=== PATIENT | male | born 1955 | race Caucasian/White ===

== ENCOUNTER 2023-03-31 22:21 | Observation (INO) | payer MEDICARE, SELFPAY ==
[2023-03-31] VITALS (7 sets, daily range): BP systolic 132; BP diastolic 67; PULSE 56–59; RESP 15–22; TEMP 36.5; O2SAT 88–99; BMI 40.7
--- NOTE | 2023-03-31 22:49 | ED_ITS ---
HPI - General Adult General Chief complaint: Chest Pain Stated complaint: Abdominal, Back and Shoulder Pain Time Seen by Provider: 03/31/23 22:44 History of Present Illness HPI narrative: 68-year-old male presents to the emergency department for pain across his lower chest and his back. It started about three hours ago. No fever or injury. He's always short of breath always has a cough, he has chronic obstructive pulmonary disease. No vomiting diarrhea or constipation. Related Data Home Medications Medication Instructions Recorded Confirmed No Known Home Medications 03/31/23 03/31/23 Allergies Allergy/AdvReac Type Severity Reaction Status Date / Time No Known Drug Allergies Allergy Verified 03/31/23 22:52 Review of Systems ROS Narrative A ten point review of systems is negative except as noted above. PFSH PFSH Social History Smoking status: Former smoker Exam Narrative Exam Narrative: Nurses note and vital signs reviewed and patient is not hypoxic. General: The patient appears well and in no apparent distress. Patient is resting comfortably on cart. Skin: Warm, dry, no pallor noted. There is no rash noted. Head: Normocephalic, atraumatic Eye: Normal conjunctiva, no drainage Ears, Nose, Mouth, and Throat: oral mucosa is moist. Nares patent. Cardiovascular: Regular Rate and Rhythm Respiratory: Patient is in no distress, no accessory muscle use, lungs are clear to auscultation, no wheezing, rales or rhonchi Back: non-tender GI: often nontender Musculoskeletal: The patient has no evidence of calf tenderness, no pitting edema, symmetrical pulses noted bilaterally Neurological: A&O, normal speech Psychiatric: Cooperative Constitutional Vital Signs, click to edit/add: Last Vital Signs Temp 97.7 F 03/31/23 22:44 Pulse 86 04/01/23 01:55 Resp 18 04/01/23 01:55 BP 141/84 04/01/23 03:15 Pulse Ox 97 04/01/23 01:55 O2 Del Method Nasal Cannula 04/01/23 01:55 O2 Flow Rate 3 04/01/23 01:55 Course Vital Signs Vital signs: Vital Signs Temperature 97.7 F 03/31/23 22:44 Pulse Rate 56 L 03/31/23 22:44 Respiratory Rate 22 03/31/23 22:44 Blood Pressure 132/67 03/31/23 22:44 Pulse Oximetry 88 L 03/31/23 22:44 Oxygen Delivery Method Room Air 03/31/23 22:44 Temperature 97.7 F 03/31/23 22:44 Pulse Rate 86 04/01/23 01:55 Respiratory Rate 18 04/01/23 01:55 Blood Pressure 141/84 04/01/23 03:15 Pulse Oximetry 97 04/01/23 01:55 Oxygen Delivery Method Nasal Cannula 04/01/23 01:55 Oxygen Delivery Flow Rate 3 04/01/23 01:55 Medical Decision Making MDM Narrative Medical decision making narrative: choledocholithiasis is suggested on the CAT scan by the radiologist with partially calcified stone at the ampulla. Bilirubin is 2.7 and he has a slight increase in his AST and ALT. no evidence of acute cholecystitis. I've spoken to the admitting service at [facility] and he is accepted there. We're awaiting bed assignment. Findings are discussed with the patient and his . He will most likely require ERCP. Differential Diagnosis Differential Diagnosis: acute cholecystitis, choledocholithiasis, hepatitis, small bowel obstructio Lab Data Lab results reviewed: Yes I reviewed the patient's lab results Labs: Lab Results 03/31/23 04/01/23 Range/Units 22:50 00:18 WBC 6.0 (4.0-11.0) 10^3/uL RBC 4.96 (4.70-6.10) 10^6/uL Hgb 13.6 L (14.0-18.0) g/dL Hct 45.3 (42.0-54.0) % MCV 91.3 (80.0-94.0) fL MCH 27.4 (25.9-34.0) pg MCHC 30.0 (29.9-35.2) g/dL RDW 14.0 (11.0-15.0) % Plt Count 219 (150-450) 10^3/uL MPV 10.9 (9.5-13.5) fL Neut % (Auto) 69.6 (43.0-75.0) % Lymph % (Auto) 16.1 L (20.5-60.0) % [place] % (Auto) 10.3 (1.7-12.0) % Eos % (Auto) 2.8 (0.9-7.0) % Baso % (Auto) 0.5 (0.2-2.0) % Neut # (Auto) 4.2 (1.4-6.5) 10^3/uL Lymph # (Auto) 1.0 L (1.2-3.8) 10^3/uL [place] # (Auto) 0.6 (0.3-0.8) 10^3/uL Eos # (Auto) 0.2 (0.0-0.7) 10^3/uL Baso # (Auto) 0.0 (0.0-0.1) 10^3/uL Abs Immat Gran (auto) 0.04 H (0.00-0.03) 10^3/uL Imm/Tot Granulo (auto) 0.7 H (0.0-0.5) % Sodium 144 (136-145) mmol/L Potassium 3.8 (3.5-5.1) mmol/L Chloride 106 (98-107) mmol/L Carbon Dioxide 28.7 (21.0-32.0) mmol/L Anion Gap 13.1 BUN 19.0 H (7.0-18.0) mg/dL Creatinine 1.02 (0.70-1.30) mg/dL Est GFR ( Amer) >60 (>=60) Est GFR (Non-Af Amer) >60 (>=60) BUN/Creatinine Ratio 18.6 Glucose 131 H (74-106) mg/dL Calcium 8.6 (8.5-10.1) mg/dL Total Bilirubin 2.7 H (0.2-1.0) mg/dL Direct Bilirubin 2.0 H* (0.0-0.2) mg/dL AST 121 H (15-37) U/L ALT 114 H (16-63) U/L Alkaline Phosphatase 525 H (46-116) U/L Troponin I High Sens 7.1 6.2 (4.0-76.1) pg/mL Total Protein 7.4 (6.4-8.2) g/dL Albumin 3.4 (3.4-5.0) g/dL Globulin 4.0 g/dL Albumin/Globulin Ratio 0.9 Amylase 65 (25-115) U/L Lipase 83.0 H (16.0-77.0) U/L Imaging Data CT scan - abdomen: Radiologist's impression: Procedure: CT abdomen pelvis wo con EXAM: CT abdomen pelvis wo con HISTORY: upper abdominal pain, elevated bilirubin COMPARISON: CT abdomen pelvis, 06/11/2021. TECHNIQUE: Nonenhanced CT imaging the abdomen and pelvis was performed with sagittal and coronal reconstructions. Dose reduction techniques were achieved by using automated exposure control and/or adjustment of mA and/or kV according to patient size and/or use of iterative reconstruction technique. FINDINGS: CT ABDOMEN: Nonspecific lower lobe bronchial wall thickening is noted. Coronary arterial calcifications are present. Cardiac size is normal. There is no pericardial effusion. There is intrahepatic and extrahepatic biliary ductal dilatation with a nonspecific 9 mm hyperdensity near the ampulla of Vater on image 58 of series 3 suspicious for choledocholithiasis. The gallbladder is distended with multiple layering stones. No wall thickening or pericholecystic fluid is seen. The exam is limited by the lack of IV contrast. Solid organ lesions or acute abnormalities could be missed. Allowing for this, the liver, pancreas, spleen, and adrenal glands are unremarkable. 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 There is a 1.5 cm lobular stone in the left renal pelvis on image 50 of series 3 with 2 additional smaller left renal calculi. There is some left renal cortical scarring with a cortical cyst off the lateral lower pole of the left kidney measuring 3.4 cm on image 66. Prior gastric bypass is noted. The stomach and small bowel are otherwise unremarkable. There are mild aortic calcifications without aneurysm. There are 2 small supraumbilical fat-containing ventral hernias with a fat-containing umbilical hernia. CT PELVIS: The appendix and pelvic small bowel loops are unremarkable. Colonic diverticulosis is noted. There is nonspecific wall thickening in the decompressed urinary bladder. The prostate is mildly enlarged. There are fat-containing inguinal hernias, right larger than left. No inflammatory fat stranding, free fluid, loculated fluid or free air is seen in the abdomen or pelvis. There is severe osteoarthritis in both hips. There is a mild broad lumbar dextroscoliosis with multilevel spinal degenerative change. No acute osseous abnormality or suspicious bony lesion is seen. IMPRESSION: 1. Nonspecific diffuse biliary ductal dilatation may be due to choledocholithiasis, with a suggested partially calcified 9 mm distal common duct stone near the ampulla. ERCP could further evaluate. 2. Cholelithiasis with diffuse gallbladder distention likely related to biliary obstruction. 3. Bilateral lower lobe bronchial wall thickening may reflect bronchitis or reactive airways disease. 4. Coronary arterial calcifications. 5. Nonobstructing 1.5 cm stone in the left renal pelvis with several additional smaller left renal calculi. 6. Gastric bypass. 7. Nonspecific wall thickening in the decompressed bladder may reflect bladder decompression or cystitis. 8. Mild prostatomegaly. Electronically authenticated by: JASMIN WU Date: 04/01/2023 02:34 Discharge Plan Discharge Chief Complaint: Chest Pain Clinical Impression: Choledocholithiasis Patient Disposition: [facility] Time of Disposition Decision: 03:31 Discharge Location: [facility] Condition: Good Mode of Transportation: EMS
--- NOTE | 2023-03-31 22:49 | ECG_ITS ---
The [facility] Test Date: 2023-03-31 Pat Name: JASMIN NASSAR Department: Room: - Gender: Male [employer] Operator: : 1955 Requested By: 1030 Order Number: [id number] Reading MD: MADHAVI TRIPLETT Measurements Intervals [place] Rate: 55 P: 76 CT: 182 QRS: 251 QRSD: 106 T: 84 QT: 442 QTc: 430 Interpretive Statements 1100 Sinus rhythm 2440 Incomplete right bundle branch block 5120 Possible right ventricular hypertrophy 7300 Indeterminate axis 8003 Consistent with pulmonary disease 9150 abnormal ECG No previous ECG available for comparison Electronically Signed On 04-01-2023 7:06:53 EST by MADHAVI TRIPLETT
--- NOTE | 2023-03-31 22:49 | XR_ITS ---
The [address] [address] Patient Name: JASMIN NASSAR MRN: [id number] date: 1955 Sex: M Assigned Patient Location: ER Current Patient Location: ER Accession/Order Number: [id number] Exam Date: 03/31/2023 23:00 Report Date: 03/31/2023 23:25 At the request of: WM SNELL Procedure: XR chest 1V CXR HISTORY: Shortness of breath COMPARISON: None. TECHNIQUE: 1 view chest submitted for review. FINDINGS: Calcified granulomas demonstrated The lungs are adequately expanded without evidence of acute infiltrate or effusion. The cardiac silhouette measures within normal. Pulmonary vascularity is unremarkable. Osseous structures do not demonstrate any acute abnormality. XR/XR chest 1V IMPRESSION: No plain film evidence for acute cardiopulmonary disease. Electronically authenticated by: IGNACIO NICOLAS Date: 03/31/2023 23:25
[2023-03-31 23:15] LABS: Basophils Percent Auto 0.5 % (0.2-2.0); Eosinophils Absolute Auto 0.2 10^3/uL (0.0-0.7); Eosinophils Percent Auto 2.8 % (0.9-7.0); Hematocrit 45.3 % (42.0-54.0); Hemoglobin 13.6 g/dL (14.0-18.0); Immature Granulocytes Abs Auto 0.04 10^3/uL (0.00-0.03); Immature Granulocytes Pct Auto 0.7 % (0.0-0.5); Lymphocytes Percent Auto 16.1 % (20.5-60.0); Mean Corpuscular Hemoglobin 27.4 pg (25.9-34.0); Mean Corpuscular Volume 91.3 fL (80.0-94.0); Mean Platelet Volume 10.9 fL (9.5-13.5); Monocytes Absolute Auto 0.6 10^3/uL (0.3-0.8); Monocytes Percent Auto 10.3 % (1.7-12.0); Neutrophils Absolute Auto 4.2 10^3/uL (1.4-6.5); Neutrophils Percent Auto 69.6 % (43.0-75.0); Platelet Count 219 10^3/uL (150-450); Red Blood Count 4.96 10^6/uL (4.70-6.10)
[2023-03-31 23:32] LABS: Alanine Aminotransferase 114 U/L (16-63); Albumin Globulin Ratio 0.9; Albumin Level 3.4 g/dL (3.4-5.0); Alkaline Phosphatase 525 U/L (46-116); Anion Gap 13.1; Aspartate Amino Transferase 121 U/L (15-37); BUN Creatinine Ratio 18.6; Bilirubin Total 2.7 mg/dL (0.2-1.0); Calcium 8.6 mg/dL (8.5-10.1); Carbon Dioxide 28.7 mmol/L (21.0-32.0); Chloride 106 mmol/L (98-107); Estimated GFR (African America >60 (>=60); Estimated GFR (Non-African Ame >60 (>=60); Glucose 131 mg/dL (74-106); Potassium 3.8 mmol/L (3.5-5.1); Sodium 144 mmol/L (136-145); Total Protein 7.4 g/dL (6.4-8.2)
[2023-03-31 23:35] LABS: Amylase 65 U/L (25-115); Troponin I High Sensitivity 7.1 pg/mL (4.0-76.1)
[2023-04-01] VITALS (107 sets, daily range): BP systolic 98–153; BP diastolic 49–104; PULSE 52–110; RESP 13–28; TEMP 36.7–36.9; O2SAT 85–100; BMI 39.1
--- NOTE | 2023-04-01 00:03 | CT_ITS ---
The [address] [address] Patient Name: JASMIN NASSAR MRN: [id number] date: 1955 Sex: M Assigned Patient Location: ER Current Patient Location: ER Accession/Order Number: [id number] Exam Date: 04/01/2023 00:40 Report Date: 04/01/2023 02:34 At the request of: WM SNELL Procedure: CT abdomen pelvis wo con EXAM: CT abdomen pelvis wo con HISTORY: upper abdominal pain, elevated bilirubin COMPARISON: CT abdomen pelvis, 06/11/2021. TECHNIQUE: Nonenhanced CT imaging the abdomen and pelvis was performed with sagittal and coronal reconstructions. Dose reduction techniques were achieved by using automated exposure control and/or adjustment of mA and/or kV according to patient size and/or use of iterative reconstruction technique. FINDINGS: CT ABDOMEN: Nonspecific lower lobe bronchial wall thickening is noted. Coronary arterial calcifications are present. Cardiac size is normal. There is no pericardial effusion. There is intrahepatic and extrahepatic biliary ductal dilatation with a nonspecific 9 mm hyperdensity near the ampulla of Vater on image 58 of series 3 suspicious for choledocholithiasis. The gallbladder is distended with multiple layering stones. No wall thickening or pericholecystic fluid is seen. The exam is limited by the lack of IV contrast. Solid organ lesions or acute abnormalities could be missed. Allowing for this, the liver, pancreas, spleen, and adrenal glands are unremarkable. 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 There is a 1.5 cm lobular stone in the left renal pelvis on image 50 of series 3 with 2 additional smaller left renal calculi. There is some left renal cortical scarring with a cortical cyst off the lateral lower pole of the left kidney measuring 3.4 cm on image 66. Prior gastric bypass is noted. The stomach and small bowel are otherwise unremarkable. There are mild aortic calcifications without aneurysm. There are 2 small supraumbilical fat-containing ventral hernias with a fat-containing umbilical hernia. CT PELVIS: The appendix and pelvic small bowel loops are unremarkable. Colonic diverticulosis is noted. There is nonspecific wall thickening in the decompressed urinary bladder. The prostate is mildly enlarged. There are fat-containing inguinal hernias, right larger than left. No inflammatory fat stranding, free fluid, loculated fluid or free air is seen in the abdomen or pelvis. There is severe osteoarthritis in both hips. There is a mild broad lumbar dextroscoliosis with multilevel spinal degenerative change. No acute osseous abnormality or suspicious bony lesion is seen. CT/CT abdomen pelvis wo con IMPRESSION: 1. Nonspecific diffuse biliary ductal dilatation may be due to choledocholithiasis, with a suggested partially calcified 9 mm distal common duct stone near the ampulla. ERCP could further evaluate. 2. Cholelithiasis with diffuse gallbladder distention likely related to biliary obstruction. 3. Bilateral lower lobe bronchial wall thickening may reflect bronchitis or reactive airways disease. 4. Coronary arterial calcifications. 5. Nonobstructing 1.5 cm stone in the left renal pelvis with several additional smaller left renal calculi. 6. Gastric bypass. 7. Nonspecific wall thickening in the decompressed bladder may reflect bladder decompression or cystitis. 8. Mild prostatomegaly. Electronically authenticated by: JASMIN WU Date: 04/01/2023 02:34
[2023-04-01] MEDS: ONDANSETRON PF 4 MG/2 ML VIAL IV ×2 (00:30→01:40)
[2023-04-01 00:47] LABS: Troponin I High Sensitivity 6.2 pg/mL (4.0-76.1)
[2023-04-01] MEDS: ALBUTEROL SULFATE 2.5 MG/3 ML VIAL NEB IH (01:53)
[2023-04-01 03:42] LABS: Influenza Virus A Antigen Negative; Influenza Virus B Antigen Negative; Internal Control Within Normal Limits; SARS-CoV-2 Ag NEGATIVE (NEGATIVE)
--- NOTE | 2023-04-01 03:47 | ECG_ITS ---
The [facility] Test Date: 2023-04-01 Pat Name: JASMIN NASSAR Department: Room: - Gender: Male Senior Media Buyer: : 1955 Requested By: 1030 Order Number: [id number] Reading MD: MADHAVI TRIPLETT Measurements Intervals Romeo Rate: 100 P: 67 SC: 184 QRS: 244 QRSD: 102 T: 73 QT: 350 QTc: 407 Interpretive Statements 1120 Sinus tachycardia 2440 Incomplete right bundle branch block 5120 Possible right ventricular hypertrophy 7300 Indeterminate axis 8003 Consistent with pulmonary disease 9150 abnormal ECG Compared to ECG 03/31/2023 22:50:41 Sinus rhythm no longer present Electronically Signed On 04-01-2023 7:08:04 EST by MADHAVI TRIPLETT
[2023-04-01] MEDS: AMPICILLIN SODIUM/SULBACTAM NA 3 GM in 0.9 % SODIUM CHLORIDE 100 ML IV (07:16)
[2023-04-01] MEDS: HYDROMORPHONE HCL 1 MG/ML CARTRIDGE IV (08:00)
[2023-04-01 14:26] LABS: SARS-CoV-2 NAA NOT DETECTED (NOT DETECTE)
[2023-04-01 17:15] LABS: Basophils Percent Auto 0.1 % (0.2-2.0); Hematocrit 45.6 % (42.0-54.0); Hemoglobin 13.6 g/dL (14.0-18.0); Immature Granulocytes Abs Auto 0.04 10^3/uL (0.00-0.03); Immature Granulocytes Pct Auto 0.4 % (0.0-0.5); Lymphocytes Absolute Auto 0.4 10^3/uL (1.2-3.8); Lymphocytes Percent Auto 3.8 % (20.5-60.0); Mean Corpuscular HGB Conc 29.8 g/dL (29.9-35.2); Mean Corpuscular Hemoglobin 27.5 pg (25.9-34.0); Mean Corpuscular Volume 92.1 fL (80.0-94.0); Monocytes Percent Auto 10.5 % (1.7-12.0); Neutrophils Absolute Auto 8.3 10^3/uL (1.4-6.5); Neutrophils Percent Auto 85.2 % (43.0-75.0); Platelet Count 182 10^3/uL (150-450); Red Blood Count 4.95 10^6/uL (4.70-6.10); Red Cell Distribution Width 14.4 % (11.0-15.0); White Blood Count 9.7 10^3/uL (4.0-11.0)
[2023-04-01 17:28] LABS: Alanine Aminotransferase 183 U/L (16-63); Albumin Globulin Ratio 0.8; Albumin Level 3.1 g/dL (3.4-5.0); Alkaline Phosphatase 514 U/L (46-116); Anion Gap 9.7; Aspartate Amino Transferase 165 U/L (15-37); BUN Creatinine Ratio 19.2; Bilirubin Total 6.4 mg/dL (0.2-1.0); Calcium 8.7 mg/dL (8.5-10.1); Carbon Dioxide 31.8 mmol/L (21.0-32.0); Chloride 107 mmol/L (98-107); Estimated GFR (African America >60 (>=60); Estimated GFR (Non-African Ame >60 (>=60); Globulin 3.9 g/dL; Glucose 107 mg/dL (74-106); Potassium 4.5 mmol/L (3.5-5.1); Sodium 144 mmol/L (136-145)
[2023-04-01] MEDS: LACTATED RINGER'S SOLUTION 1,000 ML 100 ML IV (21:02)
[2023-04-01] MEDS: CEFTRIAXONE 1,000 MG in 0.9 % SODIUM CHLORIDE 50 ML 100 MG IV (21:03)
[2023-04-01] MEDS: METRONIDAZOLE/SODIUM CHLORIDE 500 MG/100 ML PREMIX 100 MG IV (21:03)
[2023-04-01] MEDS: ENOXAPARIN SODIUM 40 MG/0.4 ML SYRINGE SUBQ (21:05)
[2023-04-01] MEDS: OXYCODONE HCL 5 MG TABLET PO (21:52)
[2023-04-02] VITALS (9 sets, daily range): BP systolic 97–117; BP diastolic 61–71; PULSE 55–98; RESP 16–24; TEMP 36.7–37.1; O2SAT 87–99
[2023-04-02] MEDS: METRONIDAZOLE/SODIUM CHLORIDE 500 MG/100 ML PREMIX 100 MG IV ×3 (04:29→20:34)
[2023-04-02 04:50] LABS: Basophils Percent Auto 0.1 % (0.2-2.0); Hemoglobin 12.9 g/dL (14.0-18.0); Immature Granulocytes Abs Auto 0.02 10^3/uL (0.00-0.03); Immature Granulocytes Pct Auto 0.3 % (0.0-0.5); Lymphocytes Absolute Auto 0.4 10^3/uL (1.2-3.8); Mean Corpuscular Hemoglobin 27.5 pg (25.9-34.0); Mean Corpuscular Volume 91.7 fL (80.0-94.0); Mean Platelet Volume 10.8 fL (9.5-13.5); Monocytes Percent Auto 12.5 % (1.7-12.0); Neutrophils Absolute Auto 6.3 10^3/uL (1.4-6.5); Neutrophils Percent Auto 82.1 % (43.0-75.0); Platelet Count 181 10^3/uL (150-450); Red Blood Count 4.69 10^6/uL (4.70-6.10); Red Cell Distribution Width 14.5 % (11.0-15.0); White Blood Count 7.6 10^3/uL (4.0-11.0)
[2023-04-02 05:10] LABS: Alanine Aminotransferase 149 U/L (16-63); Albumin Globulin Ratio 0.7; Albumin Level 2.7 g/dL (3.4-5.0); Alkaline Phosphatase 445 U/L (46-116); Aspartate Amino Transferase 114 U/L (15-37); BUN Creatinine Ratio 20.2; Bilirubin Total 7.2 mg/dL (0.2-1.0); Calcium 8.3 mg/dL (8.5-10.1); Carbon Dioxide 28.2 mmol/L (21.0-32.0); Chloride 105 mmol/L (98-107); Estimated GFR (African America >60 (>=60); Estimated GFR (Non-African Ame >60 (>=60); Globulin 3.8 g/dL; Glucose 112 mg/dL (74-106); Potassium 4.2 mmol/L (3.5-5.1); Sodium 140 mmol/L (136-145); Total Protein 6.5 g/dL (6.4-8.2)
[2023-04-02] MEDS: OXYCODONE HCL 5 MG TABLET PO ×3 (08:41→20:30)
[2023-04-02] MEDS: ENOXAPARIN SODIUM 40 MG/0.4 ML SYRINGE SUBQ (08:41)
[2023-04-02] MEDS: LACTATED RINGER'S SOLUTION 1,000 ML 100 ML IV ×2 (08:42→19:56)
[2023-04-02] MEDS: ALBUTEROL SULFATE 2.5 MG/3 ML VIAL NEB IH ×3 (15:11→23:16)
--- NOTE | 2023-04-02 17:14 | P.HP_ITS ---
H&P: HPI History of Present Illness Chief complaint: Abdominal, Back/Shoulder Pain CHOLEDOCHOLITHIOSIS Narrative: 68 y/o male to ER with abdominal pain. Symptoms started abruptly about 3 hours prior to arrival. No SOB/ C/o nausea but no emesis. Severe pain in abdomen and upper chest. Pain radiated to back. To ER and afebrile. WBC normal but LFTs elevated. CT showed choledocholithiasis. Contacted hospitalist at [facility] and accepted for transfer but no beds available. Admitted for treatment. Started rocphin and flagyl. Continues to c/o abdominal pain. Afebrile. Labs show worsening bilirubin this am. Review of Systems ROS Constitutional Denies: fever, chills or night sweats Cardiovascular Denies: chest pain, palpitations or edema Respiratory Denies: shortness of breath, cough or wheezing Gastrointestinal Reports: abdominal pain and nausea; Denies: vomiting or diarrhea Genitourinary Denies: painful urination [facility] Medical History (Updated 04/02/23 @ 17:21 by Ricky García MD) Right groin hernia ?K40.90 - Unilateral inguinal hernia, without obstruction or gangrene, not specified as recurrent (ICD-10) Left knee pain ?M25.562 - Pain in left knee (ICD-10) Right knee pain ?M25.561 - Pain in right knee (ICD-10) Right hip pain ?M25.551 - Pain in right hip (ICD-10) Hypotension ?I95.9 - Hypotension, unspecified (ICD-10) Surgical History (Updated 04/01/23 @ 20:08 by Marilyn Lloyd) History of kidney surgery ?Z98.890 - Other specified postprocedural states (ICD-10) H/O gastric bypass ?Z98.84 - Bariatric surgery status (ICD-10) Family History (Updated 04/01/23 @ 20:10 by Marilyn Lloyd) Mother Family history of CHF (congestive heart failure) Brother Family history of CHF (congestive heart failure) Family history of myocardial infarction Social History (Updated 04/01/23 @ 20:12 by Marilyn Lloyd) Within the past year, how often did you have a drink containing alcohol: monthly or less Within the past year, how many standard drinks containing alcohol did you have on a typical day: 3 or 4 Within the past year, how often did you have six or more drinks on one occasion: less than monthly Total score: 3 Score interpretation: A score less than 4 is consistent with normal alcohol consumption. Smoking status: Former smoker Second hand tobacco smoke exposure: No Non-prescribed substance use: cannabis (any form) Previous occupational history: railroad Known occupational exposures/hazards: No Highest level of school completed/degree received: 12th grade, no diploma Do you want help with school or training: No Are you now , , , , never or living with a partner: In a typical week, how many times do you talk on the telephone with family, friends, or neighbors: 3 or more times per week How often do you get together with friends or relatives: 3 or more times per week How often do you attend christianity or catholic services: never Do you belong to any clubs or organizations such as christianity groups unions, [employer] or athletic groups, or school groups: no Total score: 2 Score interpretation: A score of greater than or equal to 2 indicates the lowest level of social isolation. Little interest or pleasure in doing things: not at all Feeling down, depressed, or hopeless: not at all Feel stressed/tense/nervous/anxious/difficulty sleeping: decline to answer Life stressors: unknown source of stress Due to disability, difficulty making decisions: No Do you think of yourself as: straight/heterosexual Gender Identity: male Meds Home Medications and Allergies Home Medications Medication Instructions Recorded Confirmed Type No Known Home Medications 03/31/23 03/31/23 History Allergies Allergy/AdvReac Type Severity Reaction Status Date / Time No Known Drug Allergies Allergy Verified 03/31/23 22:52 Exam Constitutional Vital Signs, click to edit/add: Last Vital Signs Temp 98.3 F 04/02/23 13:29 Pulse 60 04/02/23 15:11 Resp 16 04/02/23 15:11 BP 113/71 04/02/23 13:29 Pulse Ox 99 04/02/23 15:11 O2 Del Method Nasal Cannula, BIPAP 04/02/23 13:29 O2 Flow Rate 4 04/02/23 13:29 Documenting provider has reviewed patient's vital signs: yes Common normals: no apparent distress, oriented x3 and alert HENMT Common normals: normocephalic Eye Common normals: PERRL and EOMs intact bilaterally Respiratory Common normals: normal respiratory effort and clear to auscultation bilaterally Cardio Common normals: regular rate, regular rhythm, no gallops, no murmurs and no rub GI Common normals: Normal to inspection, nondistended, normoactive bowel sounds present Palpation: tender Details: epigastric and RUQ; no guarding Extremity Common normals: no pedal edema Results Labs Labs: Short CBC 04/01/23 04/02/23 Range/Units 16:56 04:38 WBC 9.7 7.6 (4.0-11.0) 10^3/uL Hgb 13.6 L 12.9 L (14.0-18.0) g/dL Hct 45.6 43.0 (42.0-54.0) % Plt Count 182 181 (150-450) 10^3/uL BMP 04/01/23 04/02/23 16:56 04:38 Sodium 144 140 Potassium 4.5 4.2 Chloride 107 105 Carbon Dioxide 31.8 28.2 BUN 20.0 H 20.0 H Creatinine 1.04 0.99 Glucose 107 H 112 H Calcium 8.7 8.3 L Liver Function 04/01/23 04/02/23 Range/Units 16:56 04:38 Total Bilirubin 6.4 H 7.2 H (0.2-1.0) mg/dL AST 165 H 114 H (15-37) U/L ALT 183 H 149 H (16-63) U/L Alkaline Phosphatase 514 H 445 H (46-116) U/L Albumin 3.1 L 2.7 L (3.4-5.0) g/dL Imaging CT scan - abdomen: Attestation: I have reviewed the pertinent imaging results. Assessment and Plan Assessment and Plan (1) COPD (chronic obstructive pulmonary disease): (2) Choledocholithiasis: Plan Continued pain and worsening labs. Patient needs transferred for ERCP and treatment. Continue percocet and morphine for pain. Add albuterol PRN. Stable for transfer once bed available.
[2023-04-02] MEDS: CEFTRIAXONE 1,000 MG in 0.9 % SODIUM CHLORIDE 50 ML 100 MG IV (20:34)
[2023-04-03] VITALS (11 sets, daily range): BP systolic 105–121; BP diastolic 63–69; PULSE 83–106; RESP 18–20; TEMP 37–37.3; O2SAT 90–95
[2023-04-03] MEDS: OXYCODONE HCL 5 MG TABLET PO ×3 (03:20→22:17)
[2023-04-03] MEDS: METRONIDAZOLE/SODIUM CHLORIDE 500 MG/100 ML PREMIX 100 MG IV ×3 (04:17→23:01)
[2023-04-03 06:03] LABS: Hematocrit 40.7 % (42.0-54.0); Hemoglobin 12.3 g/dL (14.0-18.0); Immature Granulocytes Abs Auto 0.03 10^3/uL (0.00-0.03); Immature Granulocytes Pct Auto 0.4 % (0.0-0.5); Lymphocytes Absolute Auto 0.4 10^3/uL (1.2-3.8); Lymphocytes Percent Auto 5.7 % (20.5-60.0); Mean Corpuscular HGB Conc 30.2 g/dL (29.9-35.2); Mean Corpuscular Hemoglobin 27.3 pg (25.9-34.0); Mean Corpuscular Volume 90.2 fL (80.0-94.0); Mean Platelet Volume 11.7 fL (9.5-13.5); Monocytes Absolute Auto 0.8 10^3/uL (0.3-0.8); Monocytes Percent Auto 11.9 % (1.7-12.0); Neutrophils Absolute Auto 5.8 10^3/uL (1.4-6.5); Platelet Count 172 10^3/uL (150-450); Red Blood Count 4.51 10^6/uL (4.70-6.10); Red Cell Distribution Width 14.6 % (11.0-15.0)
[2023-04-03 06:20] LABS: Alanine Aminotransferase 123 U/L (16-63); Albumin Globulin Ratio 0.6; Albumin Level 2.5 g/dL (3.4-5.0); Alkaline Phosphatase 400 U/L (46-116); Anion Gap 9.9; Aspartate Amino Transferase 88 U/L (15-37); BUN Creatinine Ratio 22.4; Bilirubin Total 8.6 mg/dL (0.2-1.0); Calcium 8.4 mg/dL (8.5-10.1); Carbon Dioxide 27.9 mmol/L (21.0-32.0); Chloride 102 mmol/L (98-107); Estimated GFR (African America 56 (>=60); Estimated GFR (Non-African Ame 46 (>=60); Globulin 3.9 g/dL; Glucose 132 mg/dL (74-106); Potassium 3.8 mmol/L (3.5-5.1); Sodium 136 mmol/L (136-145); Total Protein 6.4 g/dL (6.4-8.2)
[2023-04-03] MEDS: ALBUTEROL SULFATE 2.5 MG/3 ML VIAL NEB IH ×5 (06:59→23:29)
[2023-04-03] MEDS: ENOXAPARIN SODIUM 40 MG/0.4 ML SYRINGE SUBQ (08:31)
[2023-04-03] MEDS: LACTATED RINGER'S SOLUTION 1,000 ML 100 ML IV ×2 (08:33→19:58)
--- NOTE | 2023-04-03 15:56 | PM.PN ---
Progress Note: Subjective Subjective Interval history: Patient feels better today. Pain tolerable with oxycodone and not as much nausea. Low grade temp overnight. Bilirubin continues to elevate. SOB improved with albuterol treatments. Mild cough. No chest pain or palpitations. No emesis or diarrhea. Exam Constitutional Vital Signs, click to edit/add: Last Vital Signs Temp 99.1 F 04/03/23 13:20 Pulse 106 H 04/03/23 13:20 Resp 20 04/03/23 13:20 BP 107/69 04/03/23 13:20 Pulse Ox 93 L 04/03/23 15:43 O2 Del Method Nasal Cannula 04/03/23 15:43 O2 Flow Rate 2 04/03/23 15:43 Documenting provider has reviewed patient's vital signs: yes Common normals: no apparent distress, oriented x3 and alert HENMT Common normals: normocephalic Eye Common normals: PERRL and EOMs intact bilaterally Respiratory Common normals: normal respiratory effort and clear to auscultation bilaterally Cardio Common normals: regular rate, regular rhythm, no gallops, no murmurs and no rub GI Common normals: Normal to inspection, nondistended, normoactive bowel sounds present Palpation: tender (Mild diffuse TTP); no guarding and no rebound tenderness present Extremity Common normals: no pedal edema Progress Note: Objective Labs Labs: Short CBC 04/03/23 Range/Units 04:47 WBC 7.0 (4.0-11.0) 10^3/uL Hgb 12.3 L (14.0-18.0) g/dL Hct 40.7 L (42.0-54.0) % Plt Count 172 (150-450) 10^3/uL BMP 04/03/23 04:47 Sodium 136 Potassium 3.8 Chloride 102 Carbon Dioxide 27.9 BUN 34.0 H Creatinine 1.52 H Glucose 132 H Calcium 8.4 L Liver Function 04/03/23 Range/Units 04:47 Total Bilirubin 8.6 H (0.2-1.0) mg/dL AST 88 H (15-37) U/L ALT 123 H (16-63) U/L Alkaline Phosphatase 400 H (46-116) U/L Albumin 2.5 L (3.4-5.0) g/dL Progress Note: A&P Assessment and Plan (1) Choledocholithiasis: (2) COPD (chronic obstructive pulmonary disease): Plan Pain tolerable with medication and continue. Continue antibiotics. Bilirubin continues to elevated and needs ERCP. Waiting for available bed at [facility].
[2023-04-03] MEDS: CEFTRIAXONE 1,000 MG in 0.9 % SODIUM CHLORIDE 50 ML 100 MG IV (22:17)
[2023-04-04 03:54] VITALS: O2SAT 93
--- NOTE | 2023-04-04 03:54 | RESP.RT ---
No HHN given. Pt sleeping. Med to be given while awake.
[2023-04-04] MEDS: METRONIDAZOLE/SODIUM CHLORIDE 500 MG/100 ML PREMIX 100 MG IV (04:31)
[2023-04-04] MEDS: OXYCODONE HCL 5 MG TABLET PO (04:34)
[2023-04-04 04:39] VITALS: BP 123/72; PULSE 85; RESP 18; TEMP 37.1; O2SAT 93
[2023-04-04 05:41] LABS: Basophils Percent Auto 0.2 % (0.2-2.0); Eosinophils Percent Auto 0.4 % (0.9-7.0); Hematocrit 38.2 % (42.0-54.0); Immature Granulocytes Abs Auto 0.07 10^3/uL (0.00-0.03); Immature Granulocytes Pct Auto 1.2 % (0.0-0.5); Lymphocytes Absolute Auto 0.5 10^3/uL (1.2-3.8); Lymphocytes Percent Auto 8.2 % (20.5-60.0); Mean Corpuscular HGB Conc 31.4 g/dL (29.9-35.2); Mean Corpuscular Hemoglobin 27.6 pg (25.9-34.0); Mean Corpuscular Volume 87.8 fL (80.0-94.0); Mean Platelet Volume 11.7 fL (9.5-13.5); Monocytes Absolute Auto 0.6 10^3/uL (0.3-0.8); Monocytes Percent Auto 11.4 % (1.7-12.0); Neutrophils Absolute Auto 4.4 10^3/uL (1.4-6.5); Neutrophils Percent Auto 78.6 % (43.0-75.0); Platelet Count 176 10^3/uL (150-450); Red Blood Count 4.35 10^6/uL (4.70-6.10); Red Cell Distribution Width 14.6 % (11.0-15.0); White Blood Count 5.6 10^3/uL (4.0-11.0)
[2023-04-04 06:08] LABS: Alanine Aminotransferase 88 U/L (16-63); Albumin Globulin Ratio 0.6; Albumin Level 2.3 g/dL (3.4-5.0); Alkaline Phosphatase 352 U/L (46-116); Anion Gap 13.5; Aspartate Amino Transferase 58 U/L (15-37); BUN Creatinine Ratio 23.5; Bilirubin Total 7.6 mg/dL (0.2-1.0); Calcium 8.6 mg/dL (8.5-10.1); Carbon Dioxide 25.9 mmol/L (21.0-32.0); Chloride 101 mmol/L (98-107); Estimated GFR (African America >60 (>=60); Estimated GFR (Non-African Ame >60 (>=60); Globulin 3.8 g/dL; Glucose 85 mg/dL (74-106); Potassium 3.4 mmol/L (3.5-5.1); Sodium 137 mmol/L (136-145); Total Protein 6.1 g/dL (6.4-8.2)
[2023-04-04 07:58] VITALS: BP 131/85; PULSE 114; RESP 18; O2SAT 95
[2023-04-04] MEDS: ALBUTEROL SULFATE 2.5 MG/3 ML VIAL NEB IH (07:58)
[2023-04-04 07:59] VITALS: O2SAT 94
[2023-04-04] MEDS: LACTATED RINGER'S SOLUTION 1,000 ML 100 ML IV (08:11)
--- NOTE | 2023-04-04 08:24 | PC.NURSE ---
called report to thor shay at [facility] at this time.
--- NOTE | 2023-04-04 15:39 | P.DS_ITS ---
DS: Providers Provider Date of admission: 04/01/23 18:37 Primary care physician: BETTY ALFRED DS: Diagnosis Discharge Diagnosis (1) Choledocholithiasis: (2) COPD (chronic obstructive pulmonary disease): DS: Summary Hospital Course Hospital Course: Reason for admission: See H&P for details. 68 y/o male to ER with abdominal pain. Symptoms started abruptly about 3 hours prior to arrival. No SOB/ C/o nausea but no emesis. Severe pain in abdomen and upper chest. Pain radiated to back. To ER and afebrile. WBC normal but LFTs elevated. CT showed choledocholithiasis. Contacted hospitalist at [facility] and accepted for transfer but no beds available. Admitted for treatment. Hospital course: Started rocphin and flagyl. Continued to c/o abdominal pain. Afebrile. Labs show worsening bilirubin. Added albuterol for SOB. Gave percocet for pain and tolerable. Still no bed available. Labs continued to show elevated bilirubin. Contacted other outlying hospitals but also on wait list. Bed available and transferred in stable condition. Time Spent with Patient Time attestation: Total time spent providing and/or coordinating discharge services: Exam Narrative Exam Narrative: Exam from visit 04/03/23 Constitutional Vital Signs, click to edit/add: Last Vital Signs Temp 98.8 F 04/04/23 04:39 Pulse 114 H 04/04/23 07:58 Resp 18 04/04/23 07:58 BP 131/85 04/04/23 07:58 Pulse Ox 94 L 04/04/23 07:59 O2 Del Method Nasal Cannula 04/04/23 07:59 O2 Flow Rate 2 04/04/23 07:59 Documenting provider has reviewed patient's vital signs: yes Common normals: no apparent distress, oriented x3 and alert HENMT Common normals: normocephalic Eye Common normals: PERRL and EOMs intact bilaterally Respiratory Common normals: normal respiratory effort and clear to auscultation bilaterally Cardio Common normals: regular rate, regular rhythm, no gallops, no murmurs and no rub GI Common normals: soft to palpation Auscultation: normoactive bowel sounds Palpation: tender (Mild TTP across upper abdomen); no guarding Extremity Common normals: no pedal edema DS: Data Data Completed and Pending Labs on day of discharge: Labs from last 24 hours 04/04/23 04/04/23 04:50 04:28 WBC 5.6 RBC 4.35 L Hgb 12.0 L Hct 38.2 L MCV 87.8 MCH 27.6 MCHC 31.4 RDW 14.6 Plt Count 176 MPV 11.7 Neut % (Auto) 78.6 H Lymph % (Auto) 8.2 L [place] % (Auto) 11.4 Eos % (Auto) 0.4 L Baso % (Auto) 0.2 Neut # (Auto) 4.4 Lymph # (Auto) 0.5 L [place] # (Auto) 0.6 Eos # (Auto) 0.0 Baso # (Auto) 0.0 Abs Immat Gran (auto) 0.07 H Imm/Tot Granulo (auto) 1.2 H Sodium 137 Potassium 3.4 L Chloride 101 Carbon Dioxide 25.9 Anion Gap 13.5 BUN 23.0 H Creatinine 0.98 Est GFR ( Amer) >60 Est GFR (Non-Af Amer) >60 BUN/Creatinine Ratio 23.5 Glucose 85 Calcium 8.6 Total Bilirubin 7.6 H AST 58 H ALT 88 H Alkaline Phosphatase 352 H Total Protein 6.1 L Albumin 2.3 L Globulin 3.8 Albumin/Globulin Ratio 0.6 Discharge Plan Discharge Disposition: [facility] Condition: Good Discharge Date/Time: 04/04/23 09:40
== END 2023-04-04 09:40 | disposition short-term general hospital (02) ==
LOC: ER 04-01 07:02 → MS 04-01 18:39
PROVIDERS: Emergency Medicine; Admitting Provider Internal Medicine; Emergency Provider Emergency Medicine Emergency Medical Services; PCP Family Medicine; Visit Provider Internal Medicine
DX: K80.50 Calculus of bile duct without cholangitis or cholecystitis without obstruction (principal); J44.9 Chronic obstructive pulmonary disease, unspecified; Z98.84 Bariatric surgery status; Z98.890 Other specified postprocedural states; Z87.891 Personal history of nicotine dependence; F12.90 Cannabis use, unspecified, uncomplicated; Z20.822 Contact with and (suspected) exposure to COVID-19
CPT/HCPCS: 36415; 71045; 74176; 80048; 80053; 80076; 82150; 83690; 84484; 85025; 87635; 87804; 87811; 93005; 94640; 94761; 96365; 96366; 96367; 96368; 96372; 96375; 96376; 99285; G0378; J1170; J1836